=== PATIENT | female | born 1975 | race Caucasian/White ===

== ENCOUNTER 2022-02-02 08:28 | Day surgery (SDC) | payer BC ==
[2022-02-01 09:15] VITALS: BMI 28.3
[~2022-02-02 08:28] MED LIST: LACTATED RINGERS 1,000 ML IV SCH; LIDOCAINE 1% (10MG/ML) FOR IV START INTRADERMA PRN
--- NOTE | 2022-02-02 08:39 | P.GSHP ---
History of Present Illness H&P Date: 02/02/22 CHIEF COMPLAINT: Colon screen HISTORY OF PRESENT ILLNESS: The patient is a 46-year-old female who presents for colon screen. Lower endoscopy was offered for further evaluation and management. PAST MEDICAL HISTORY: Please see list. PAST SURGICAL HISTORY: Please see list. MEDICATIONS: Please see list. ALLERGIES: Please see list. SOCIAL HISTORY: No illicit drug use FAMILY HISTORY: No reports of Crohn disease or ulcerative colitis. REVIEW OF ORGAN SYSTEMS: CONSTITUTIONAL: No reports of fevers or chills. PHYSICAL EXAM: VITAL SIGNS: Stable GENERAL: Well-developed pleasant in no acute distress. HEENT: No scleral icterus. Extraocular movements grossly intact. Moist buccal mucosa. NECK: Supple without lymphadenopathy. CHEST: Unlabored respirations. Equal bilateral excursions. CARDIOVASCULAR: Regular rate and rhythm. Distal 2+ pulses. ABDOMEN: Soft, nontender, nondistended. MUSCULOSKELETAL: No clubbing, cyanosis, or edema. ASSESSMENT: 1. Colon screen. PLAN: 1. Recommend proceeding with a lower endoscopy Past Medical History Past Medical History: Osteoarthritis (OA) History of Any Multi-Drug Resistant Organisms: None Reported Past Surgical History: No Surgical Hx Reported Past Anesthesia/Blood Transfusion Reactions: No Reported Reaction Additional Past Anesthesia/Blood Transfusion Reaction / Comment(s): FIRST ANES THETIC Smoking Status: Former smoker - Past Family History Mother Family Medical History: No Reported History Medications and Allergies Home Medications Medication Instructions Recorded Confirmed Type Ascorbic Acid [Vitamin C] 400 mg PO DAILY 02/01/22 02/01/22 History Multivitamins, Thera [Multivitamin 1 tab PO DAILY 02/01/22 02/01/22 History (formulary)] Zinc 10 mg PO DAILY 02/01/22 02/01/22 History Allergies Allergy/AdvReac Type Severity Reaction Status Date / Time No Known Allergies Allergy Verified 02/01/22 08:40
[2022-02-02 08:43] VITALS: RESP 16; TEMP 99.7
[2022-02-02] MEDS ORDERED: LIDOCAINE 1% INJ 10MG/ML (20 ML MDV) ONE (09:28)
[2022-02-02] MEDS ORDERED: PROPOFOL 10 MG/ML 20 ML VIAL IV ONE (09:28)
--- NOTE | 2022-02-02 09:43 | P.PCN ---
Date of Procedure: 02/02/22 Description of Procedure: PREOPERATIVE DIAGNOSIS: Family history colon cancer Colonoscopy screening. POSTOPERATIVE DIAGNOSIS: Colonoscopy screening. Diverticulosis, scattered. OPERATION: Colonoscopy to the cecum, ileocecal valve and appendiceal orifice. SURGEON: Kasey Rico MD. ANESTHESIA: MAC. INDICATIONS: The patient is a 46-year-old female who presents for colonoscopy screening. Benefits and risks were described and informed consent was obtained. DESCRIPTION OF PROCEDURE: The patient had undergone Sutab prep. The patient had been brought into the operating room and laid in the left lateral decubitus position. After adequate intravenous sedation, the rectum was examined with 2% lidocaine jelly. No external hemorrhoids were encountered. The rectal tone was within normal limits. No lesions were palpated in the rectal vault. An Olympus colonoscope was advanced until the cecum, ileocecal valve and appendiceal orifice were clearly viewed. The prep was excellent. Scattered diverticulosis was encountered. No colonic polyps were found. No evidence of focal colitis was found. Retroflexion of the scope demonstrated grade 1 internal hemorrhoids without active bleeding or inflammation. The colon was desufflated. The patient had tolerated the procedure well. Withdrawal time was over 6 minutes. FINDINGS: Aronchick preparation quality scale 1 (1-5) Internal hemorrhoids, grade 1 No external prolapsed hemorrhoids. No arteriovenous malformations. No adenomatous polyps. No focal colitis. RECOMMENDATIONS: Lower endoscopy in 5 2026 Plan - Discharge Summary Discharge Rx Participant: Yes New Discharge Prescriptions: Continue Ascorbic Acid [Vitamin C] 400 mg PO DAILY Zinc 10 mg PO DAILY Multivitamins, Thera [Multivitamin (formulary)] 1 tab PO DAILY Discharge Medication List Ascorbic Acid [Vitamin C] 400 mg PO DAILY 02/01/22 [History] Multivitamins, Thera [Multivitamin (formulary)] 1 tab PO DAILY 02/01/22 [History] Zinc 10 mg PO DAILY 02/01/22 [History] Follow up Appointment(s)/Referral(s): Kasey Rico MD [STAFF PHYSICIAN] - As Needed Patient Instructions/Handouts: *Surgery [facility] - (Anesthesia) Endoscopy Discharge Instructions, Colonoscopy (DC), Diverticulosis Diet (GEN), Diverticulosis (DC) Activity/Diet/Wound Care/Special Instructions: Repeat colonoscopy in 5 years2026 Discharge Disposition: HOME SELF-CARE
[2022-02-02 10:02] VITALS: BP 126/91; PULSE 82
== END 2022-02-02 10:15 | disposition home or self-care (01) ==
LOC: ORWHC2ENDO 08:28 → MERGE 08:30 → ORWHC2ENDO 10:15
PROVIDERS: ATTEND Surgery Plastic and Reconstructive Surgery
DX: Z12.11 Encounter for screening for malignant neoplasm of colon (principal); K57.30 Diverticulosis of large intestine without perforation or abscess without bleeding; K64.0 First degree hemorrhoids; Z80.0 Family history of malignant neoplasm of digestive organs; M19.90 Unspecified osteoarthritis, unspecified site; Z87.891 Personal history of nicotine dependence
CPT/HCPCS: 81025; J2001; J2704; G0105

== ENCOUNTER → 2022-02-15 | Outpatient (CLI) | payer BC ==
--- NOTE | 2022-02-17 08:41 | MM ---
Reason for exam: screening (asymptomatic). Last mammogram was performed 11 years and 7 months ago. History: Benign excisional biopsy of the left breast, 2015. Physical Findings: A clinical breast exam by your physician is recommended on an annual basis and results should be correlated with mammographic findings. MG 3D Screening Mammo W/Cad Bilateral CC and MLO view(s) were taken. Prior study comparison: November 15, 2016, mammogram, performed at [facility]. April 25, 2016, mammogram, performed at [facility]. August 15, 2014, mammogram, performed at [facility]. The breast tissue is heterogeneously dense. This may lower the sensitivity of mammography. Finding: There is a typically benign 9 mm equal density (isodense), circumscribed oval mass located 7 cm from the nipple in the lower inner quadrant, middle position of the right breast. New finding since November 15, 2016 and April 25, 2016. ASSESSMENT: Incomplete: need additional imaging evaluation, BI-RAD 0 RECOMMENDATION: Ultrasound of the right breast. [facility] will attempt to contact patient to return for ultrasound.
== END | disposition home or self-care (01) ==
LOC: MERGE 01-20 16:40 → RADMAMWWP 07:13
PROVIDERS: ATTEND Family Medicine
DX: Z12.39 Encounter for other screening for malignant neoplasm of breast (principal)
CPT/HCPCS: 77063; 77067

== ENCOUNTER → 2022-02-18 | Outpatient (CLI) | payer BC ==
--- NOTE | 2022-02-18 14:50 | USB ---
Reason for exam: additional evaluation requested from abnormal screening. History: Benign excisional biopsy of the left breast, 2015. Physical Findings: A clinical breast exam by your physician is recommended on an annual basis and results should be correlated with mammographic findings. US Breast Workup Limited RT Right limited breast ultrasound including focal area of concern, retroareolar and axilla demonstrates a 0.6 x 0.4 x 0.4cm cystic lesion at 3 o'clock 3cm from nipple and a 1.1 x 1.2 x 0.8cm cystic cluster at 4 o'clock 5cm from nipple. Scanned 3-6 o'clock. Multiple subcentimeter cysts. ASSESSMENT: Probably benign, BI-RAD 3 RECOMMENDATION: Ultrasound of the right breast in 6 months.
== END | disposition home or self-care (01) ==
LOC: RADUSWWP 12:59
PROVIDERS: ATTEND Family Medicine
DX: R92.8 Other abnormal and inconclusive findings on diagnostic imaging of breast (principal)

== ENCOUNTER → 2022-08-29 | Outpatient (CLI) | payer BC ==
--- NOTE | 2022-08-29 07:46 | USB ---
Reason for Exam: Follow-up at short interval from prior study. Patient History: Menarche at age 10. First Full-Term at age 29. Late child-bearing (after 29). 2015, Benign Excisional Biopsy on the left side. Risk Values: Susan 5 year model risk: 1.9%. NCI Lifetime model risk: 16.4%. Technique: Method: Targeted. Prior Study Comparison: 04/25/2016 Screening Mammogram, [facility]. 11/15/2016 Screening Mammogram, [facility]. 02/15/2022 Bilateral Screening Mammogram, [facility]. 02/18/2022 Right Diagnostic Ultrasound, [facility]. Findings: The axilla of the right breast and the retroareolar of the right breast were scanned. Limited right breast from ultrasound 2 through 4:00 with evaluation of the nipple complex and axilla were obtained. Relatively stable anechoic cystic lesion within septation at 3:00 3 cm from the nipple measuring 0.8 x 0.7 x 0.6 cm. Decrease in size of anechoic cystic lesion at 4:00 6 cm from the nipple with thin septation measuring 0.7 x 0.5 x 0.8 cm. These are most consistent with clustered cysts. Overall Assessment: Benign, BI-RAD 2 Management: Screening Mammogram of both breasts in 6 months. A clinical breast exam by your physician is recommended on an annual basis and results should be correlated with mammographic findings. Electronically signed and approved by: Benny Madera D.O.
== END | disposition home or self-care (01) ==
LOC: RADUSWWP 07:09
PROVIDERS: ATTEND Family Medicine
DX: R92.8 Other abnormal and inconclusive findings on diagnostic imaging of breast (principal)

== ENCOUNTER → 2023-03-06 | Outpatient (CLI) | payer BC ==
[2023-03-06 12:03] LABS: Chol/HDL Ratio 3.75 Ratio; LDL Cholesterol,Calculated 156.6 mg/dL (0.0-131.0)
--- NOTE | 2023-03-07 06:53 | MM ---
Reason for Exam: Screening (asymptomatic). Last mammogram was performed 1 year(s) and 1 month(s) ago. Patient History: Menarche at age 10. First Full-Term at age 29. Late child-bearing (after 29). 2014, Benign Excisional Biopsy on the left side. Maternal cousin had breast cancer. Risk Values: Susan 5 year model risk: 1.8%. NCI Lifetime model risk: 16.1%. Prior Study Comparison: 04/25/2016 Screening Mammogram, [facility]. 11/15/2016 Screening Mammogram, [facility]. 02/15/2022 Bilateral Screening Mammogram, [facility]. Tissue Density: The breast tissue is heterogeneously dense. This may lower the sensitivity of mammography. Findings: Analyzed By CAD. There is occasional tiny appearing round calcifications bilaterally redemonstrated. There is no suspicious new group of microcalcifications or new suspicious mass in either breast. Overall Assessment: Benign, BI-RAD 2 Management: Screening Mammogram of both breasts in 1 year. A clinical breast exam by your physician is recommended on an annual basis and results should be correlated with mammographic findings. Electronically signed and approved by: Ousmane Gibson M.D.
== END | disposition home or self-care (01) ==
LOC: RADMAMWWP 07:15
PROVIDERS: ATTEND Family Medicine
DX: Z12.31 Encounter for screening mammogram for malignant neoplasm of breast (principal); E78.5 Hyperlipidemia, unspecified; Z80.3 Family history of malignant neoplasm of breast
CPT/HCPCS: 77063; 77067; 80061